=== PATIENT | female | born 1980 | race Caucasian/White ===

== ENCOUNTER 2016-10-25 07:26 | Day surgery (SDC) | payer OTHER ==
[2016-10-23 17:30] VITALS: BMI 45.6
[~2016-10-25 07:26] MED LIST: ceFAZolin SODIUM 1 GM VIAL IVPB ONE
[2016-10-25 07:55] LABS: EOSINOPHIL 1.2 % (0-4.5); MCH 32.8 pg (25.7-33.7); MCHC 33.4 g/dl (32.0-36.0); MEAN CELL VOLUME 98.4 fl (80-96); MEAN PLT VOLUME 8.1 fl (7.5-11.1); NEUTROPHILS 66.7 % (42.8-82.8); PLATELET COUNT 230 K/MM3 (134-434); RDW 13.1 % (11.6-15.6); WHITE BLOOD COUNT 6.7 K/mm3 (4.0-10.0)
[2016-10-25 08:35] LABS: ALBUMIN 3.5 g/dl (3.4-5.0); ANION GAP 10 (8-16); BILIRUBIN,TOTAL 0.4 mg/dL (0.2-1.0); CALCIUM 8.6 mg/dL (8.5-10.1); CO2 27 mmol/L (21-32); CREATININE 0.7 mg/dL (0.55-1.02); GLUCOSE,RANDOM 88 mg/dL (74-106); SGOT/AST 18 U/L (15-37); SGPT/ALT 16 U/L (12-78)
[2016-10-25 08:36] LABS: ALK PHOS 83 U/L (45-117); TOT PROT 7.8 g/dl (6.4-8.2)
[2016-10-25] MEDS ORDERED: MIDAZOLAM HCL 2 MG/2 ML SINGLE DOSE VIAL ONE (10:00)
[2016-10-25] MEDS ORDERED: PROPOFOL 20 ML ONE (10:05)
[2016-10-25] MEDS ORDERED: ceFAZolin SODIUM 1 GM VIAL IVPB ONE (10:16)
[2016-10-25] MEDS ORDERED: KETOROLAC TROMETHAMINE 30 MG/1 ML VIAL ONE (10:16)
[2016-10-25] MEDS ORDERED: LIDOCAINE HCL/PF 2% SDV 5ML VIAL ONE (10:16)
[2016-10-25] MEDS ORDERED: DEXAMETHASONE SOD PHOSPHATE 4 MG/1 ML VIAL ONE (10:16)
[2016-10-25] MEDS ORDERED: ONDANSETRON 4 MG/2 ML VIAL ONE (10:16)
[2016-10-25] MEDS ORDERED: ACETAMINOPHEN 325 MG TABLET (FP) PO PRN (10:46)
[2016-10-25] MEDS ORDERED: IBUPROFEN 400 MG TABLET (FP) PO PRN (10:46)
--- NOTE | 2016-10-25 10:46 | HP ---
History & Physical Update - History History: No Change - Physical Physical: No Change - Assessment Assessment: No Change - Plan Plan: No Change
--- NOTE | 2016-10-25 10:54 | OP ---
[id number] Operation: Suction DC Findings: 8cm uterus Post-Operative Diagnosis: Same as Pre-op Surgeon: Sierra Forman Anesthesia: General Estimated Blood Loss (mls): 40 Operative Report Dictated: Yes
[2016-10-25 11:56] VITALS: TEMP 98.5
[2016-10-25] MEDS ORDERED: PROMETHAZINE HCL 25 MG/1 ML VIAL IVPUSH PRN (12:14)
[2016-10-25] MEDS ORDERED: ONDANSETRON 4 MG/2 ML VIAL IVPUSH PRN (12:14)
[2016-10-25] MEDS ORDERED: oxyCODONE HCL 5 MG TABLET PO PRN (12:14)
[2016-10-25] MEDS ORDERED: LACTATED RINGERS SOLUTION 1,000 ML IV SCH (12:15)
[2016-10-25 13:24] VITALS: BP 116/73; PULSE 73
--- NOTE | 2016-10-26 12:26 | PATH ---
Surgical Pathology Report Patient Name: LUKE OLSEN Med. Rec. #: [id number] /Age/Gender: 1980 (Age: 36) / F Account: [id number] Location: [facility] SURGICAL Taken: 10/25/2016 Received: 10/25/2016 Reported: 10/26/2016 Physicians: Sierra Forman M.D. Specimen(s) Received PRODUCTS OF CONCEPTION Clinical History Missed Final Diagnosis UTERINE CONTENTS, EVACUATION: CHORIONIC VILLI CONSISTENT WITH PRODUCTS OF CONCEPTION. Comment: Chromosome analysis is pending, and a report will follow. Electronically Signed Francis Rodgers M.D. 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 The loss of a sex chromosome is the most common abnormality found in spontaneous abortions with more than 99% of 45,X fetuses aborting spontaneously. RECOMMENDATION: Genetic counseling. Simone Camargo M.D. Gross Description Received fresh labeled "products of conception for chromosomal," is a 13.5 x 9.5 x 1.6 cm aggregate of waldrop red soft tissue fragments. Villous tissue is identified. No somatic tissue is identified. A workforce services representative portion is placed in RPMI solution and sent for chromosomal studies. An additional workforce services representative portion is submitted for permanent sections in one cassette. 10/25/201610/25/2016
--- NOTE | 2016-10-26 16:41 | OP ---
DATE OF OPERATION: 10/25/2016 PREOPERATIVE DIAGNOSIS: Missed . POSTOPERATIVE DIAGNOSIS: Missed . OPERATION: Suction dilation and curettage. SURGEON: Sierra Forman M.D. ANESTHESIA: General. DESCRIPTION OF PROCEDURE: Patient was taken to the operating room, placed in dorsal lithotomy position. Prepped and draped in the usual sterile fashion. Speculum was placed in the vagina, anterior lip of the cervix grasped with single tooth tenaculum. Cervix then dilated to accommodate number 8 suction curettage. Number 8 suction curet was then inserted, all contents were removed, sharp curettage was then done, and followed by suction D&C and specimen was submitted to pathology for chromosomal analysis. Case discussed with . Estimated blood loss 40 mL. All instruments were then removed. Patient tolerated procedure well, was taken to recovery room in stable condition. SIERRA FORMAN M.D. [id number]
== END 2016-10-25 13:15 | disposition home or self-care (01) ==
LOC: JASU-SURG 07:26
PROVIDERS: ATTEND Obstetrics & Gynecology
PROC: 10D07Z8 Extraction of Products of Conception, Other, Via Natural or Artificial Opening (ICD-10-PCS; principal; 2016-10-25 09:30)
DX: O02.1 Missed abortion (principal)
CPT/HCPCS: 36415; 80053; 85025; 86850; 86900; 86901; 88305-TC; 94760

== ENCOUNTER 2018-01-13 09:40 | Inpatient (IN) | payer OTHER ==
[2018-01-13] MEDS ORDERED: ELECTROLYTE-148 SOLN 500 ML IV ONE (10:00)
[2018-01-13] MEDS ORDERED: PROMETHAZINE HCL 25 MG/1 ML VIAL IVPB ONE (10:04)
[2018-01-13] MEDS ORDERED: CITRIC ACID/SODIUM CITRATE 30 ML UNIT-DOSE CUP PO ONE ×2 (10:04→11:00)
[2018-01-13] MEDS ORDERED: IBUPROFEN 800 MG/8 ML IJ IVPB PRN (10:06)
[2018-01-13] MEDS ORDERED: METHYLERGONOVINE MALEATE 0.2 MG/1 ML AMP IM PRN (10:06)
[2018-01-13] MEDS ORDERED: OXYTOCIN 20 UNITS in 0.9% NS 20 UNIT/1,000 ML INFUS.BAG IV SCH (10:15)
[2018-01-13] MEDS ORDERED: ELECTROLYTE-148 SOLN 1,000 ML IV SCH ×2 (10:15→10:30)
[2018-01-13 10:49] VITALS: BMI 35.6
[2018-01-13] MEDS ORDERED: TUBERCULIN PPD 5 TU/0.1ML SYRINGE (IN PATIENT USE ONLY) ID ONE (11:00)
[2018-01-13] MEDS ORDERED: BUPIVACAINE 0.75% IN DEXTROSE/PF 2ML AMPULE NR ONE (11:07)
[2018-01-13] MEDS ORDERED: morphine SULFATE/Preservative Free 0.5 MG/ML (1cc Syringe) ONE (11:07)
[2018-01-13] MEDS ORDERED: ONDANSETRON 4 MG/2 ML VIAL IVPUSH PRN (12:20)
--- NOTE | 2018-01-13 13:08 | HP ---
Past Medical History - Primary Care Physician PCP:: Sierra Forman - Admission Chief Complaint: Previous Section History Source: Patient Limitations to Obtaining History: No Limitations - Past Medical History ...: 4 ...Para: 1 ...Term: 1 ...: 0 ...Spon : 2 ...Induced : 0 ...Multiple Gestation: 0 ...LMP: 04/16/17 ... Weeks Gestation by Dates: 38.6 ...EDC by Dates: 01/21/18 ...EDC by Sono: 01/19/18 - Past Surgical History Past Surgical History: Yes: Hx Myomectomy: No Hx Transabdominal Cerclage: No - Smoking History Smoking history: Never smoked Have you smoked in the past 12 months: No - Alcohol/Substance Use Hx Alcohol Use: No Home Medications - Allergies Allergies/Adverse Reactions: Allergies Allergy/AdvReac Type Severity Reaction Status Date / Time No Known Drug Allergies Allergy Verified 10/23/16 17:29 - Home Medications Home Medications: Ambulatory Orders Doxycycline Hyclate [Vibratab -] 100 mg PO BID #6 tablet 10/25/16 Ibuprofen [Motrin -] 600 mg PO QID PRN #28 tablet 10/25/16 Review of Systems - Review of Systems Constitutional: reports: No Symptoms Eyes: reports: No Symptoms HENT: reports: No Symptoms Neck: reports: No Symptoms Cardiovascular: reports: No Symptoms Respiratory: reports: No Symptoms Gastrointestinal: reports: No Symptoms Genitourinary: reports: No Symptoms Breasts: reports: No Symptoms Reported Musculoskeletal: reports: No Symptoms Integumentary: reports: No Symptoms Neurological: reports: No Symptoms Endocrine: reports: No Symptoms Hematology/Lymphatic: reports: No Symptoms Psychiatric: reports: No Symptoms Physical Exam - Maternity Vital Signs: Vital Signs Temperature 99.0 F 01/13/18 09:40 Pulse Rate 78 01/13/18 09:40 Respiratory Rate 20 01/13/18 09:40 Blood Pressure 131/74 01/13/18 09:40 O2 Sat by Pulse Oximetry (%) Constitutional: Yes: Well Nourished, No Distress - Abdominal Exam/OB Fundal Height: 41 Number of Fetuses: Single Presentation: Vertex Contractions: No Category: I Accelerations: Non-Uniform Decelerations: None - Vaginal Exam/OB Dilatation (cm): closed Amniotic Membrane Status: Intact Presentation: Vertex/Position - Physical Exam Musculoskeletal: Yes: WNL Extremities: Yes: WNL Edema: No Psychiatric: Yes: WNL, Alert, Oriented Hemorrhage Risk Assessment - Risk Factors Medium Risk Factors: Yes: Prior , uterine surgery,or multiple laparotomies Risk Score: 1 Risk Level: Medium Risk Problem List - Problems (1) Previous delivery affecting , antepartum Code(s): O34.219 - MATERNAL CARE FOR UNSP TYPE SCAR FROM PREVIOUS DEL Assessment/Plan Previous Section IUP at 39 week Plan Section
[2018-01-13] MEDS ORDERED: SODIUM CHLORIDE 0.9% P/F 10 ML VIAL IJ ONE (13:09)
[2018-01-13] MEDS ORDERED: ceFAZolin SODIUM 1 GM VIAL ONE (13:09)
[2018-01-13] MEDS ORDERED: KETOROLAC TROMETHAMINE 30 MG/1 ML VIAL ONE (13:10)
--- NOTE | 2018-01-13 13:17 | OP ---
Operative Note - Note: Operative Date: 01/13/18 Pre-Operative Diagnosis: Previous Section. IUP at 39 week Operation: Repeat Section Post-Operative Diagnosis: Same as Pre-op Surgeon: Sierra Forman Inspector Missile: Cameron Denise Anesthesia: Spinal Estimated Blood Loss (mls): 500 Operative Report Dictated: Yes
[2018-01-13] MEDS ORDERED: OXYTOCIN 10 UNITS/ML VIAL ONE (13:24)
[2018-01-13] MEDS ORDERED: ePHEDrine SULFATE 50 MG/1 ML AMPULE ONE ×2 (13:26→13:54)
[2018-01-13 14:26] LABS: ARTERIAL BLD GAS O2 SATURATION 30.8 % (90-98.9); ARTERIAL BLOOD GAS BASE EXCESS -3.5 meq/l (-2-2); ARTERIAL BLOOD GAS PCO2 56.7 mmHg (35-45); ARTERIAL BLOOD GAS PO2 20.3 mmHg (80-100); ARTERIAL BLOOD GAS pH 7.25 (7.35-7.45)
[2018-01-13 14:33] LABS: VENOUS PC02 46.1 mmHg (38-52); VENOUS PH 7.34 (7.32-7.42)
[2018-01-13 14:34] LABS: VENOUS PO2 21.2 mmHg (28-48)
[2018-01-13] MEDS ORDERED: OXYTOCIN 20 UNITS in 0.9% NS 20 UNIT/1,000 ML INFUS.BAG IV ONE (14:46)
--- NOTE | 2018-01-13 21:04 | OP ---
DATE OF OPERATION: 01/13/2018 PREOPERATIVE DIAGNOSIS: Previous section, intrauterine at 39 weeks. OPERATION: Repeat section. POSTOPERATIVE DIAGNOSIS: Live female infant. SURGEON: Sierra Forman M.D. INVOICE CLASSIFICATION CLERK: Yolette Mariscal M.D. unavailable. ANESTHESIA: Spinal. DESCRIPTION OF PROCEDURE: Patient was taken to the operating room, placed in supine position. Prepped and draped in usual sterile fashion. Wing had been inserted. Pfannenstiel skin incision was made after timeout had been done according to hospital regulation. Cautery was then used to go through layers of abdominal wall towards the fascia. Fascia was cut in the midline, and cautery was then used to open the fascia in smiling fashion. Marichuy was then used to bluntly and sharply dissect the rectus muscle of the fascia. The muscle split in the midline. Peritoneal cavity was then entered and carried upward and downward. The bladder retractor was then placed. Vesicouterine reflection was then entered. The bladder was bluntly dissected out of the field. The scalpel was then used to make a low transverse uterine incision. Incision was carried upward using bandage scissors. A live female infant was delivered in OP position. Nose to mouth suction was performed. Nuchal cord x2 was reduced. The shoulders were delivered without difficulty. The cord was clamped and cut. Cord blood obtained, cord pH obtained. The placenta was manually extracted from the uterus. The uterus was exteriorized and cleaned with clean lap pads. The uterine incision was then closed using 0 Biosyn suture, first layer continuous interlocking, second layer imbricating the first layer. Hemostasis was achieved. Uterus interiorized. Abdominal cavity cleaned with clean lap pads. Abdominal sweep was done. Tubes and ovaries noted to be normal. Peritoneum closed using 0 Biosyn suture. Muscle approximated in the midline using 0 Biosyn suture. Fascia was then closed using 0 Vicryl suture in 2 parts. Subcutaneous was then closed using interrupteds using 0 Biosyn suture, and skin was then closed using 3-0 Vicryl in subcuticular fashion. Wound was washed and dressed. Patient tolerated the procedure well. Estimated blood 500 mL. SIERRA FORMAN M.D. [id number] [facility]
[2018-01-14 08:10] LABS: BASO % 0.5 % (0-2.0); EOS % 0.5 % (0-4.5); HEMATOCRIT 32.1 % (32.4-45.2); HEMOGLOBIN 10.6 GM/dL (10.7-15.3); LYMPH % 10.3 % (8-40); MCH 29.8 pg (25.7-33.7); MCHC 33.1 g/dl (32.0-36.0); MEAN CELL VOLUME 89.9 fl (80-96); MEAN PLT VOLUME 10.3 fl (7.5-11.1); MONO % 7.6 % (3.8-10.2); NEUT % 81.1 % (42.8-82.8); PLATELET COUNT 188 K/MM3 (134-434); RBC 3.57 M/mm3 (3.60-5.2); RDW 14.5 % (11.6-15.6); WHITE BLOOD COUNT 10.7 K/mm3 (4.0-10.0)
[2018-01-14] MEDS: FERROUS SO4 325 MG TABLET (FP) PO SCH ×2 (08:50→17:30)
[2018-01-14] MEDS ORDERED: FERROUS SO4 325 MG TABLET (FP) PO SCH (10:00)
[2018-01-14] MEDS ORDERED: BISACODYL 10 MG SUPP.RECT RC PRN (10:06)
[2018-01-14] MEDS ORDERED: oxyCODONE HCL 5 MG TABLET PO PRN (10:06)
[2018-01-14] MEDS: PRENATAL VITAMINS W/ FOLIC ACID TABLET (FP) PO SCH (10:30)
--- NOTE | 2018-01-14 12:37 | PN ---
Progress Note (short form) - Note Progress Note: Anesthesia POD#1 S/P under Spinal and Duramorph VSS,pain is under control,no N/V No complications seen Sophie Bryant MD.
[2018-01-14] MEDS: SIMETHICONE 80 MG TAB.CHEW (FP) PO PRN (16:59)
[2018-01-14] MEDS: IBUPROFEN 600 MG TABLET (FP) PO PRN (16:59)
--- NOTE | 2018-01-15 07:20 | PN ---
Post Note - Post Date of Delivery: 01/13/18 Vital Signs: Vital Signs - 24 hr 01/14/18 01/14/18 01/14/18 08:00 08:39 09:00 Temperature 97.8 F Pulse Rate 84 Respiratory 20 20 20 Rate Blood Pressure 98/55 01/14/18 01/14/18 01/14/18 10:00 11:00 12:00 Temperature Pulse Rate Respiratory 20 20 20 Rate Blood Pressure 01/14/18 01/14/18 01/14/18 13:00 14:00 22:00 Temperature 98.2 F 97.9 F Pulse Rate 82 80 Respiratory 20 20 20 Rate Blood Pressure 111/47 140/55 Labs: Laboratory Results - last 24 hr 01/14/18 07:55 WBC 10.7 H RBC 3.57 L Hgb 10.6 L Hct 32.1 L MCV 89.9 MCH 29.8 MCHC 33.1 RDW 14.5 Plt Count 188 MPV 10.3 Absolute Neuts (auto) 8.7 Neutrophils % 81.1 Lymphocytes % 10.3 D Monocytes % 7.6 Eosinophils % 0.5 Basophils % 0.5 Nucleated RBC % 0 - Subjective Subjective: No Complaints - Objective Afebrile: Yes Breast: Not engorged Abdomen: Soft, Non-tender Uterus: Fundus firm Vagina: Scant lochia Extremities: Non-tender - Assessment/Plan (1) Previous delivery affecting , antepartum Assessment: Other (POD2 CS) Plan: Routine Care, Other (percocet prn)
[2018-01-15] MEDS: FERROUS SO4 325 MG TABLET (FP) PO SCH ×2 (08:24→16:57)
[2018-01-15] MEDS: oxyCODONE HCL 5 MG TABLET PO PRN ×2 (08:24→16:17)
[2018-01-15] MEDS: SIMETHICONE 80 MG TAB.CHEW (FP) PO PRN ×2 (08:25→16:19)
[2018-01-15] MEDS: IBUPROFEN 600 MG TABLET (FP) PO PRN ×2 (08:25→16:18)
[2018-01-15] MEDS: PRENATAL VITAMINS W/ FOLIC ACID TABLET (FP) PO SCH (09:48)
[2018-01-15] MEDS ORDERED: DIPHTH,PERTUSS(ACELL),TET 0.5 ML DISP.SYRIN IM ONE (17:30)
[2018-01-16] MEDS: oxyCODONE HCL 5 MG TABLET PO PRN (05:30)
[2018-01-16] MEDS: IBUPROFEN 600 MG TABLET (FP) PO PRN (05:30)
[2018-01-16] MEDS: SIMETHICONE 80 MG TAB.CHEW (FP) PO PRN (05:30)
[2018-01-16] MEDS: FERROUS SO4 325 MG TABLET (FP) PO SCH (07:23)
[2018-01-16 07:25] LABS: BASO % 0.8 % (0-2.0); EOS % 4.7 % (0-4.5); HEMOGLOBIN 10.2 GM/dL (10.7-15.3); LYMPH % 16.8 % (8-40); MCH 29.7 pg (25.7-33.7); MCHC 32.8 g/dl (32.0-36.0); MEAN CELL VOLUME 90.5 fl (80-96); MEAN PLT VOLUME 10.1 fl (7.5-11.1); MONO % 7.8 % (3.8-10.2); NEUT % 69.9 % (42.8-82.8); PLATELET COUNT 232 K/MM3 (134-434); RBC 3.42 M/mm3 (3.60-5.2); RDW 14.4 % (11.6-15.6); WHITE BLOOD COUNT 8.5 K/mm3 (4.0-10.0)
[2018-01-16] MEDS: PRENATAL VITAMINS W/ FOLIC ACID TABLET (FP) PO SCH (09:08)
[2018-01-16 09:23] VITALS: BP 131/60; PULSE 71; TEMP 98.1
--- NOTE | 2018-01-20 08:41 | DS ---
Physical Exam-NICKER AND BREAKER Vital Signs: Vital Signs Temperature 98.1 F 01/16/18 09:20 Pulse Rate 71 01/16/18 09:20 Respiratory Rate 20 01/16/18 09:20 Blood Pressure 131/60 01/16/18 09:20 O2 Sat by Pulse Oximetry (%) 100 01/13/18 15:00 Constitutional: Yes: Well Nourished, No Distress Respiratory: Yes: WNL, Regular, CTA Bilaterally Gastrointestinal: Yes: WNL, Normal Bowel Sounds, Soft Breast(s): Yes: WNL Musculoskeletal: Yes: WNL Extremities: Yes: WNL Edema: No Wound/Incision: Yes: Steri Strips, Open to air Neurological: Yes: WNL, Alert, Oriented Labs: CBC, BMP 01/16/18 06:30 Delivery - Delivery Section: Low Flap Transverse Type of Anesthesia: Spinal Episiotomy/Laceration: None EBL (cc): 500 Delivery, Single - Stages of Labor Date of Delivery: 01/13/18 Time of Delivery: 13:34 Time Placenta Delivered: 13:35 - Condition of Online Community Manager/Buying Intern Present: Yes Name: Omega Adams Infant Gender: Female Weight: 6 lb 4 oz Position: OT Total Hours ROM (Hrs/Mins): 2mins - 1 Minute Total Score: 9 5 Minutes Total Score: 9 - [place] Feeding Plan Initial Plan: Elected not to breastfeed exclusively throughout hospitalization Discharge Summary Reason For Visit: SCHEDULED Previous Section Hospital Course: Unremarkable Condition: Good - Instructions Diet, Activity, Other Instructions: Physical activity Resume your normal everyday activity as tolerated no heavy lifting or exercise until seen by your surgeon. You may walk unlimited alex of and climb stairs. You may resume driving the car when you feel safe and comfortable behind the wheel. No sexual activity as instructed. Wound care If you have a bandage, leave it on, and keep dry for 48-72 hours. After that time discard the outer bandage. If they are tapes on the skin under the out of bandage leave them in place. They will peel off in the next 7 to 10 days. Do Not Peel them off. You may shower the day after surgery. If there are tapes present on the skin, you may shower over them. Diet There are no dietary restrictions. Eat healthy, high-fiber foods. Drink 6 to 8 glasses of liquid each day. This will assist in keeping your bowels are regular. Pain management You may take Tylenol or acetaminophen or Ibuprofen (for example, Motrin, Advil etc.) from my pain prescription medication is ordered should be taken as prescribed for moderate to severe pain. Call MD for any of the following: Severe pain not relieved by medication Fever of 101 or higher Excessive bleeding or drainage on dressing Inability to urinate Disposition: HOME - Home Medications Comprehensive Discharge Medication List: Ambulatory Orders Doxycycline Hyclate [Vibratab -] 100 mg PO BID #6 tablet 10/25/16 Ibuprofen [Motrin -] 600 mg PO QID PRN #28 tablet 10/25/16 Oxycodone HCl/Acetaminophen [Percocet 5-325 mg Tablet] 1 - 2 tab PO Q6H #20 tab MDD 6 01/15/18
--- NOTE | 2018-01-23 17:05 | PATH ---
Surgical Pathology Report Patient Name: LUKE OLSEN Med. Rec. 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 Specimen(s) Received PLACENTA Clinical History , 39.1 weeks, previous , advanced maternal age Final Diagnosis PLACENTA: THIRD TRIMESTER PLACENTA. TRIVASCULAR CORD. MEMBRANES WITH NO DIAGNOSTIC ABNORMALITIES. Electronically Signed Ana Elliott M.D. Gross Description The specimen is received fresh labeled placenta and is a 521 gram, 17.5 x 16.0 x 2.5 cm. placenta with attached membranes and umbilical cord. The attached membranes are waldrop, translucent with focal opacities and insert marginally. The umbilical cord measures 10 cm. in length and averages 1 cm. in diameter. The cord inserts eccentrically, 6 cm. to the nearest margin. No true knots or strictures are identified. Cut surface of the umbilical cord reveals 3 vessels. The surface is gonzalez-blue with minimal fibrin deposition and appropriate caliber vessels. The maternal surface is red-brown with focal defects. Sectioning reveals red-brown, spongy parenchyma. No lesions are identified. Import Coordinator sections are submitted in three cassettes as follows: 1- membrane rolls and umbilical cord; 2-3- full thickness sections of placenta. 01/17/2018 [facility]01/17/2018
== END 2018-01-16 12:02 | disposition home or self-care (01) | DRG 766 ==
LOC: JLDR 09:40 → J3W 16:00
PROVIDERS: ADMIT Obstetrics & Gynecology; ATTEND Obstetrics & Gynecology
PROC: 10D00Z1 Extraction of Products of Conception, Low, Open Approach (ICD-10-PCS; principal; 2018-01-13)
DX: O34.219 Maternal care for unspecified type scar from previous cesarean delivery (principal); Z3A.39 39 weeks gestation of pregnancy; Z37.0 Single live birth
CPT/HCPCS: 36415; 36600; 82803; 85025; 88307-TC; 90715